=== PATIENT | female | born 1955 | race Caucasian/White ===

== ENCOUNTER 2023-06-10 12:24 | Outpatient (CLI) | payer BC, SELFPAY | END 2023-06-10 12:25 | disposition home or self-care (01) | LOC: NFLDREF 06-14 07:05 | PROVIDERS: PCP Family Medicine; Referring Provider Family Medicine; Visit Provider Nurse Practitioner Family | DX: R30.0 Dysuria (principal); N30.00 Acute cystitis without hematuria | CPT/HCPCS: 87086 ==

== ENCOUNTER 2024-06-04 12:57 | Outpatient (CLI) | payer MEDICARE, BC, SELFPAY | END 2024-06-04 12:58 | disposition home or self-care (01) | LOC: NFLDREF 06-06 15:03 | PROVIDERS: PCP Family Medicine; Referring Provider Family Medicine; Visit Provider Nurse Practitioner Family | DX: R30.0 Dysuria (principal); R82.90 Unspecified abnormal findings in urine | CPT/HCPCS: 87086; 87186 ==

== ENCOUNTER 2024-06-19 09:34 | Outpatient (CLI) | payer MEDICARE, BC, SELFPAY | END 2024-06-19 09:35 | disposition home or self-care (01) | LOC: NFLDUCREF 09:34 | PROVIDERS: PCP Family Medicine; Visit Provider Nurse Practitioner Family | DX: R30.0 Dysuria (principal) | CPT/HCPCS: 87086; 87186 ==

== ENCOUNTER 2024-10-21 09:57 | Outpatient (CLI) | payer MEDICARE, BC, SELFPAY | END 2024-10-21 09:58 | disposition home or self-care (01) | LOC: NFLDREF 10-22 18:56 | PROVIDERS: PCP Family Medicine; Referring Provider Family Medicine; Visit Provider Nurse Practitioner | DX: N30.00 Acute cystitis without hematuria (principal); B95.2 Enterococcus as the cause of diseases classified elsewhere | CPT/HCPCS: 87086; 87186 ==